=== PATIENT | female | born 1995 | race African-American/Black ===

== ENCOUNTER 2019-02-10 11:08 | Emergency (ER) | payer MEDICAID, SELFPAY ==
[2019-02-10 12:07] LABS: #Basophils 0.1 thou/uL (0.0-0.2); #Eosinphils 0.2 thou/uL (0.0-0.7); #Lymphocytes 0.6 thou/uL (1.20-3.40); #Monocytes 1.5 thou/uL (0.11-0.59); #Neutrophils 11.5 thou/uL (1.40-6.50); %Basophils 0.6 % (0.0-1.0); %Eosinophils 1.5 % (0.0-10.0); %Lymphocytes 4.5 % (21.0-51.0); %Monocytes 10.5 % (0.0-10.0); %Neutrophils 82.9 % (42.0-75.0); Hemoglobin 11.7 g/dL (12.0-16.0); Mean Corpuscular HGB CONC 35.4 g/dL (32.0-36.0); Mean Corpuscular Hemoglobin 27.3 pg (27.0-31.0); Mean Corpuscular Volume 77.1 fL (78.0-98.0); Mean Platelet Volume 7.5 fL (7.4-10.4); Platelet Count 252 thou/uL (130-400); RBC Distribution Width 12.4 % (11.5-14.5); Red Blood Cell (RBC) Count 4.29 mill/uL (4.20-5.40); White Blood Cell (WBC) Count 13.9 thou/uL (4.8-10.8)
[2019-02-10 12:22] LABS: ALT (SGPT) 18 U/L (8-55); AST (SGOT) 15 U/L (5-34); Albumin 3.5 g/dL (3.5-5.0); Alkaline Phosphatase 84 U/L (40-150); Anion Gap 14 mmol/L (10-20); BUN (Urea Nitrogen) 8 mg/dL (7.0-18.7); Bilirubin, Total 0.3 mg/dL (0.2-1.2); Calc. Creatinine Clearance 0 mL/min (70-130); Calcium 9.2 mg/dL (7.8-10.44); Carbon Dioxide 19 mmol/L (22-29); Chloride 105 mmol/L (98-107); Estimated GFR-MDRD Greater than 90; Globulin 3.5 g/dL (2.4-3.5); Glucose 82 mg/dL (70-105); Lipase 13 U/L (8-78); Sodium 134 mmol/L (136-145)
[2019-02-10 14:03] LABS: Bilirubin Negative (Negative); Blood, Urine Negative (Negative); Clarity Slightly Cloudy (Clear); Glucose, Urine (Dipstick) Negative (Negative); Leukocyte Trace (Negative); Nitrite Negative (Negative); Protein, Urine (Dipstick) Negative (Neg-Trace); Specific Gravity, Urine 1.015 (1.005-1.030)
--- NOTE | 2019-02-10 14:04 | ULT ---
OB ULTRASOUND: Date: 02/10/19 HISTORY: Back and pelvic pain. FINDINGS: Real-time imaging of the pelvis shows single, viable intrauterine , in a vertex presentation . The placenta is posterior in location without evidence of previa. Amniotic fluid is adequate for th is stage of . heart rate is 173 beats/minute. Limited assessment of anatomy is p erformed. No anomaly is detected. Measurements are as follows: BPD: 4.7 cm, 20 weeks/1 day HC: 17.5 cm, 20 weeks/0 days AC: 14.9 cm, 20 weeks/1 day FL: 3.1 cm, 19 weeks/5 days IMPRESSION: 1. Single, viable intrauterine , in a vertex presentation. Overall measurements correspondi ng to 19 weeks/6 days. Estimated date of delivery is 07/01/19. 2. Placenta which is more posterior in location. No signs of previa. POS: [facility]
[2019-02-10 14:09] LABS: Bacteria/HPF 1+ HPF (None Seen); Hyaline Casts/LPF 0-3 HYALINE CAST LPF (0-3 Hyaline); RBC/HPF 0-3 HPF (0-3); WBC/HPF 0-3 HPF (0-3)
[2019-02-10 14:48] LABS: Lactic Acid 1.1 mmol/L (0.5-2.2)
[2019-02-10] MEDS ORDERED: Acetaminophen 500 MG TAB ONE (15:00)
== END 2019-02-10 15:43 | disposition home or self-care (01) ==
LOC: SCSER 11:08
DX: O99.89 Other specified diseases and conditions complicating pregnancy, childbirth and the puerperium (principal); R10.9 Unspecified abdominal pain; M54.5 Low back pain; Z3A.19 19 weeks gestation of pregnancy
CPT/HCPCS: 36415; 76805; 80053; 81003; 81015; 83605; 83690; 84702; 85025; 86900; 86901; 87040; 96365; 96375

== ENCOUNTER 2019-06-25 06:56 | Inpatient (IN) | payer OTHER ==
[2019-06-25] MEDS ORDERED: hydrALAZINE 20 MG/ML VIAL SLOW IVP PRN ×3 (07:17→20:16)
[2019-06-25] MEDS ORDERED: Ondansetron PF 4 MG/2 ML Vial IVP PRN ×2 (07:42→20:16)
[2019-06-25] MEDS ORDERED: Diphenoxylate HCl/Atropine Tablet PO PRN ×2 (07:42)
[2019-06-25] MEDS ORDERED: Misoprostol 200 MCG TAB PR PRN (07:42)
[2019-06-25] MEDS ORDERED: Ibuprofen 800 MG TAB PO PRN (07:42)
[2019-06-25] MEDS ORDERED: Butorphanol Tartrate 1 MG/ML VIAL SLOW IVP PRN (07:42)
[2019-06-25] MEDS ORDERED: Promethazine HCl 25 MG/ML VIAL IM PRN ×2 (07:42→20:16)
[2019-06-25] MEDS ORDERED: HYDROcodone/Acetaminophen 5/325 mg Tablet PO PRN ×4 (07:42→20:16)
[2019-06-25] MEDS ORDERED: NS / Oxytocin 40 units/1000ml 1,000 ML IV PRN (07:42)
[2019-06-25] MEDS ORDERED: Methylergonovine 0.2 MG/ML VIAL IM PRN (07:42)
[2019-06-25] MEDS ORDERED: Acetaminophen 500 MG TAB PO PRN (07:42)
[2019-06-25] MEDS ORDERED: Carboprost 250 MCG/ML AMP IM PRN (07:42)
[2019-06-25] MEDS ORDERED: Lidocaine 1% (PF) 30 ML VIAL SC PRN (07:42)
[2019-06-25] MEDS ORDERED: Lactated Ringer's 1,000 ML IV SCH (07:45)
[2019-06-25 08:11] VITALS: BMI 44.6
[2019-06-25 08:28] LABS: Hemoglobin 11.4 g/dL (12.0-16.0); Mean Corpuscular Hemoglobin 27.9 pg (27.0-31.0); Mean Corpuscular Volume 77.5 fL (78.0-98.0); Mean Platelet Volume 7.9 fL (7.4-10.4); Platelet Count 311 thou/uL (130-400); RBC Distribution Width 12.5 % (11.5-14.5); White Blood Cell (WBC) Count 18.1 thou/uL (4.8-10.8)
[2019-06-25 09:05] LABS: Syphilis Antibody Nonreactive (Nonreactive); Syphilis Antibody Index 0.09 S/CO (<1.00 Non-Reactive)
[2019-06-25 09:06] LABS: HBSAg Index 0.19 S/CO (0-0.99); Hep B Surf Ag Non-Reactive S/CO (NonReactive)
--- NOTE | 2019-06-25 17:39 | PDOC.LDHP ---
Labor and Delivery H&P Chief complaint: contractions HPI: 24 y/o 39 and 3/7 weeks presents in labor. Abnormal US findings: No Current medications: pre- vitamins Allergies/Adverse Reactions: Allergies Allergy/AdvReac Type Severity Reaction Status Date / Time No Known Allergies Allergy Verified 06/25/19 08:13 - Physical Exam Vital signs reviewed and normal: yes General: NAD, resting Heart: RRR Lungs: CTAB Abdomen: NTTP Extremeties: no edema FHT: category 1 - Assessment L&D Assessment: term patient in labor - Plan Plan: admit to L&D, labor augmentation if indicated
[2019-06-25] MEDS ORDERED: Varicella virus, LIVE 0.5 ML VIAL SC ONE (20:16)
[2019-06-25] MEDS ORDERED: diphenhydrAMINE 25 MG CAP PO PRN (20:16)
[2019-06-25] MEDS ORDERED: Misoprostol 200 MCG TAB VAG PRN (20:16)
[2019-06-25] MEDS ORDERED: Zolpidem Tartrate 5 MG TAB PO PRN (20:16)
[2019-06-25] MEDS ORDERED: Bisacodyl 10 MG SUPP PR PRN (20:16)
[2019-06-25] MEDS ORDERED: Benzocaine-Menthol 82.5 ML CAN TOP PRN (20:16)
[2019-06-25] MEDS ORDERED: Lanolin Ointment 7 GM TUBE TOP PRN (20:16)
[2019-06-25] MEDS ORDERED: Preparation H Ointment 28 GM TUBE PR PRN (20:16)
[2019-06-25] MEDS ORDERED: NS / Oxytocin 40 units/1000ml 1,000 ML IV SCH (20:16)
[2019-06-25] MEDS ORDERED: Milk Of Magnesia 30 ML UDCUP PO PRN (20:16)
[2019-06-25] MEDS ORDERED: Adacel (T-DAP) 0.5 ML SYRINGE IM ONE (20:16)
[2019-06-25] MEDS ORDERED: Measles/Mumps/Rubella 10 MCG/0.5 ML VIAL SC ONE (20:16)
[2019-06-25] MEDS: Docusate Calcium (SURFAK) 240 MG CAP PO SCH (20:44)
[2019-06-25] MEDS: Ibuprofen 800 MG TAB PO SCH (20:45)
[2019-06-25] MEDS ORDERED: Witch Hazel-Glycerin 1 EACH JAR TOP PRN (23:06)
[2019-06-26] MEDS: Ibuprofen 800 MG TAB PO SCH ×4 (06:16→22:15)
[2019-06-26 06:42] LABS: Hemoglobin 10.7 g/dL (12.0-16.0); Mean Corpuscular HGB CONC 35.8 g/dL (32.0-36.0); Mean Corpuscular Hemoglobin 28.1 pg (27.0-31.0); Mean Corpuscular Volume 78.6 fL (78.0-98.0); Mean Platelet Volume 7.7 fL (7.4-10.4); Platelet Count 298 thou/uL (130-400); RBC Distribution Width 12.3 % (11.5-14.5); Red Blood Cell (RBC) Count 3.81 mill/uL (4.20-5.40); White Blood Cell (WBC) Count 17.2 thou/uL (4.8-10.8)
[2019-06-26] MEDS: Ferrous Sulfate 325 MG TAB PO SCH ×2 (08:23→15:44)
[2019-06-26] MEDS: Docusate Calcium (SURFAK) 240 MG CAP PO SCH ×2 (09:11→22:15)
[2019-06-26] MEDS: Prenatal Vitamin 1 TAB PO SCH (09:11)
--- NOTE | 2019-06-26 17:34 | PDOC.PP ---
Post Progress Note Post Day #: 1 PO intake tolerated: yes Flatus: yes Ambulation: yes Vital Signs (12 hours) Temp Pulse Resp BP Pulse Ox 06/26/19 15:37 98.1 F 94 16 125/69 99 06/26/19 11:59 98.1 F 83 20 99/62 06/26/19 09:10 97 06/26/19 08:12 97.8 F 75 20 110/58 L 97 Weight Weight 268 lb - Physical Examination General: NAD Cardiovascular: no m/r/g, RRR Respiratory: clear to auscultation bilaterally, non-labored breathing Abdominal: + bowel sounds, no distention Extremities: negative homans (B) Neurological: no gross focal deficits Result Diagrams: 06/26/19 06:28 Additional Labs: Post Labs Blood Type O POSITIVE 06/25/19 08:14 Hep Bs Antigen Non-Reactive S/CO (NonReactive) 06/25/19 08:14
--- NOTE | 2019-06-27 02:29 | DN ---
DATE OF PROCEDURE: 06/25/2019 TIME OF SERVICE: At 1709 hours, [place] Daylight Savings Time. PREOPERATIVE DIAGNOSIS: Intrauterine at 39 weeks and 0 day with a term induction of labor. POSTOPERATIVE DIAGNOSIS: Intrauterine at 39 weeks and 0 day with a term induction of labor. PROCEDURE PERFORMED: Spontaneous vaginal over intact perineum. FINDINGS: Viable male weighing 3466 g or 7 pounds 10 ounces. Apgars 9 and 9. QUANTITATIVE BLOOD LOSS: 125 mL. COMPLICATIONS: None. PROCEDURE IN DETAIL: The patient presented to [facility] where she was admitted to the labor and delivery service. The patient underwent a normal and uneventful labor with normal cervical dilatation until she was found to be completely dilated. She was then allowed to push and was able to bring the baby down and delivered the baby in a vertex presentation without difficulties. Once the head delivered in occiput anterior position, the shoulders followed spontaneously along with the rest of the baby's body. Once out the baby's mouth and nose were bulb suctioned. The cord was clamped and cut and baby was handed to waiting attendants. Cord blood was collected. Gentle fundal massage was performed and the placenta delivered intact without problems. Hemostasis was assured. Quantitative blood loss was calculated. Inspection of the cervix, vaginal vault, and perineum did not reveal any lacerations needing suturing. Once again, hemostasis was within normal limits and the patient was allowed to recover in the labor and delivery room. Baby went to nursery. Job ID: [id number]
[2019-06-27] MEDS: Ibuprofen 800 MG TAB PO SCH ×2 (06:21→13:17)
[2019-06-27] MEDS: Ferrous Sulfate 325 MG TAB PO SCH (07:31)
[2019-06-27 08:21] VITALS: TEMP 98.1
[2019-06-27 09:29] VITALS: BP 117/63
[2019-06-27] MEDS: Prenatal Vitamin 1 TAB PO SCH (10:51)
[2019-06-27] MEDS: Docusate Calcium (SURFAK) 240 MG CAP PO SCH (10:52)
== END 2019-06-27 16:00 | disposition home or self-care (01) | DRG 807 ==
LOC: L&D/OP 06:56 → L&D 07:54 → UNDOADMIN 07:54 → L&D 07:55 → 3SW 20:14
PROVIDERS: ADMIT Obstetrics & Gynecology; ATTEND Obstetrics & Gynecology
PROC: 10E0XZZ Delivery of Products of Conception, External Approach (ICD-10-PCS; principal; 2019-06-26)
PROC: 3E033VJ Introduction of Other Hormone into Peripheral Vein, Percutaneous Approach (ICD-10-PCS; 2019-06-26)
DX: O80 Encounter for full-term uncomplicated delivery (principal); Z37.0 Single live birth; Z3A.39 39 weeks gestation of pregnancy
CPT/HCPCS: 36415; 85027; 86780; 86850; 86900; 86901; 87340; 90716; 99285; J2001

== ENCOUNTER 2022-03-05 08:31 | Emergency (ER) | payer OTHER, SELFPAY ==
[2022-03-05] MEDS ORDERED: Proparacaine 0.5% Opth 15 ML BOT ONE (08:46)
[2022-03-05] MEDS ORDERED: Fluorescein Opthalmic Strip ONE (08:46)
== END 2022-03-05 10:42 | disposition home or self-care (01) ==
LOC: ERS 08:31
DX: H57.89 Other specified disorders of eye and adnexa (principal); F17.210 Nicotine dependence, cigarettes, uncomplicated
CPT/HCPCS: 99282